=== PATIENT | female | born 1965 | race Caucasian/White ===

== ENCOUNTER → 2016-06-19 | Outpatient (CLI) | payer OTHER ==
[~2016-06-19] VITALS: Ht 166.4 cm; Wt 88.9 kg
[~2016-06-19] MED LIST: EFFEXOR25 MG PO
== END | disposition home or self-care (01) ==
LOC: AMB 07:30
PROC: 0WJP8ZZ Inspection of Gastrointestinal Tract, Via Natural or Artificial Opening Endoscopic Approach (ICD-10-PCS; principal; 2016-06-19)
DX: Z12.11 Encounter for screening for malignant neoplasm of colon (principal); Z80.0 Family history of malignant neoplasm of digestive organs; J30.9 Allergic rhinitis, unspecified; I48.0 Paroxysmal atrial fibrillation